=== PATIENT | female | born 1990 | race Two or more races ===

== ENCOUNTER 2016-04-17 22:29 | Emergency (ER) | payer MEDICAID ==
[~2016-04-17] VITALS: Ht 162.6 cm; Wt 52.2 kg
[~2016-04-17 22:29] MED LIST: DOCU-159 PO
[2016-04-17 23:03] VITALS: BP 119/81
[2016-04-18] MEDS ORDERED: FAMOTIDINE (20 MG) 20 MG TABLET ONE (02:17)
[2016-04-18] MEDS ORDERED: diphenhydrAMINE HCL 50 MG CAPSULE ONE (02:18)
[2016-04-18] MEDS ORDERED: HYDROCORTISONE 1% CREAM 28.35 GM TUBE TP ONE (02:19)
[2016-04-18] MEDS ORDERED: diphenhydrAMINE HCL 25 MG CAPSULE PO ONE (02:30)
[2016-04-18] MEDS ORDERED: FAMOTIDINE (20 MG) 20 MG TABLET PO ONE (02:30)
[2016-04-18] MEDS ORDERED: HYDROCORTISONE 1% CREAM 30 GM TUBE TP ONE (02:30)
== END 2016-04-18 02:29 | disposition home or self-care (01) ==
LOC: ER 22:32
DX: S80.862A Insect bite (nonvenomous), left lower leg, initial encounter (principal); S80.861A Insect bite (nonvenomous), right lower leg, initial encounter; W57.XXXA Bitten or stung by nonvenomous insect and other nonvenomous arthropods, initial encounter; Y93.89 Activity, other specified; Y92.89 Other specified places as the place of occurrence of the external cause; Y99.8 Other external cause status
CPT/HCPCS: 99284; A4606; Q0163; Z7610

== ENCOUNTER 2016-12-24 15:19 | Emergency (ER) | payer MEDICAID, OTHER ==
[~2016-12-24] VITALS: Ht 165.1 cm; Wt 48.1 kg
--- NOTE | 2016-12-24 15:22 | NUR ---
ABD PAIN ON-OFF X 2 MONTHS, WORST THIS WK DIARRHEA SATURDAY
[2016-12-24] MEDS ORDERED: PANTOPRAZOLE 40 MG TABLET.DR PO ONE ×2 (15:50→16:00)
[2016-12-24] MEDS ORDERED: ONDANSETRON HCL/PF 4 MG/2 ML VIAL ONE (15:50)
[2016-12-24 15:52] LABS: BASOPHILS % (AUTO) 0.4 % (0.0-2.0); EOSINOPHILS % (AUTO) 0.7 % (0.0-6.0); HEMATOCRIT 41 % (33-45); HEMOGLOBIN 13.7 g/dL (11.5-14.8); LYMPHOCYTES # (AUTO) 1.5 /CMM (0.8-4.8); LYMPHOCYTES % (AUTO) 27.4 % (20.0-44.0); MEAN CORPUSCULAR HEMOGLOBIN 30 PG (26.0-33.0); MEAN CORPUSCULAR HGB CONC 33 g/dl (31.0-36.0); MEAN CORPUSCULAR VOLUME 90 fL (82-100); MONOCYTES # (AUTO) 0.3 /CMM (0.1-1.30); MONOCYTES % (AUTO) 5.9 % (2.0-12.0); NEUTROPHILS # (AUTO) 3.8 /CMM (1.8-8.9); NEUTROPHILS % (AUTO) 65.6 % (43.0-81.0); PLATELET COUNT (AUTO) 307 /CMM (150-450); RDW COEFFICIENT OF VARIATION 11.8 (11.5-15.0); WHITE BLOOD COUNT (AUTO) 5.6 K/uL (4.3-11.0)
--- NOTE | 2016-12-24 15:55 | NUR ---
LAC #20 IV ACCESS. BLOOD SAMPLE COLLECTED SENT TO LAB
[2016-12-24 15:59] LABS: APPEARANCE,URINE SL CLOUDY (CLEAR); BILIRUBIN,URINE 1+ (NEGATIVE); BLOOD, URINE 1+ Ery/uL (NEGATIVE); COLOR,URINE YELLOW (YELLOW); KETONES,URINE 1+ (NEGATIVE); LEUKOCYTE ESTERASE ,URINE NEGATIVE (NEGATIVE); NITRITE, URINE NEGATIVE (NEGATIVE); PH,URINE 6.5 (5.0-8.0); PROTEIN,URINE NEGATIVE (NEGATIVE); UGLUCOSE NEGATIVE (NEGATIVE); UROBILINOGEN,URINE 0.2 EU/dL (0.2)
--- NOTE | 2016-12-24 15:59 | NUR ---
BLOSSOM RODRIGUEZ AT BEDSIDE
[2016-12-24] MEDS ORDERED: IV NS 0.9% 1,000 ML BAG IV ONE (16:00)
[2016-12-24] MEDS ORDERED: ONDANSETRON HCL/PF - ER 4 MG/2 ML VIAL IV ONE (16:00)
[2016-12-24 16:17] LABS: ALBUMIN 4.4 g/dL (3.4-5.0); BILIRUBIN,DIRECT 0.3 mg/dL (0.0-0.2); BILIRUBIN,TOTAL 2.3 mg/dL (0.2-1.0); CALCIUM, SERUM 9.3 mg/dL (8.5-10.1); CREATININE 0.7 mg/dL (0.6-1.3); POTASSIUM 3.7 mmol/L (3.5-5.1); TOTAL PROTEIN, SERUM 7.8 g/dL (6.4-8.2)
[2016-12-24 16:36] LABS: BACTERIA,URINE Many /HPF (None Seen); SQUAMOUS EPITHELIAL CELL,UR Moderate /HPF (None Seen); WBC,URINE 0-2 /HPF (0-3)
--- NOTE | 2016-12-24 17:35 | NUR ---
Note abraham in EDM - 12/24/16 at 1745 by HASMUKH BIB SELF, C/O ABD PAIN W/ N/V/D, HEADACHE AFTER EATING FROM [facility] YESTERDAY, NAD NOTED, VSS, RESP EVEN AND UNLABORED. WAITING FOR MD BRADEN.
--- NOTE | 2016-12-24 17:59 | NUR ---
IV removed. Catheter intact and site benign. Pressure and 4x4 applied to site. No bleeding noted.Patient discharged to home in stable condition. Written and verbal after care instructions given. Patient verbalizes understanding of instruction.
[2016-12-24 18:05] VITALS: BP 125/83
== END 2016-12-24 18:05 | disposition home or self-care (01) ==
LOC: ER 15:22
DX: K59.09 Other constipation (principal); E86.0 Dehydration; R79.89 Other specified abnormal findings of blood chemistry; G89.29 Other chronic pain; F10.10 Alcohol abuse, uncomplicated
CPT/HCPCS: 36415; 76705-TC; 80048-TC; 80076-TC; 81000-TC; 83690-TC; 84703-TC; 85025-TC; 87086-TC; A4606; J2405; J7030; Z7610

== ENCOUNTER 2017-03-29 20:45 | Emergency (ER) | payer OTHER ==
--- NOTE | 2017-03-29 21:31 | NUR ---
CALLED FOR TRIAGE; NOT IN LOBBY OR OUTSIDE. SECURITY CONFIRMED
--- NOTE | 2017-03-29 21:47 | NUR ---
CALLED AGAIN; NO ANSWER
--- NOTE | 2017-03-29 22:01 | NUR ---
CALLED AGAIN; NO ANSWER
--- NOTE | 2017-03-29 22:56 | NUR ---
NO ANSWER WHEN CALLED AGAIN
== END 2017-03-29 23:05 | disposition left against medical advice (07) ==
LOC: ER 20:46
DX: Z53.21 Procedure and treatment not carried out due to patient leaving prior to being seen by health care provider (principal)

== ENCOUNTER 2017-05-07 18:17 | Emergency (ER) | payer OTHER ==
[~2017-05-07] VITALS: Ht 162.6 cm; Wt 47.6 kg
[2017-05-07 18:42] VITALS: BP 131/79
[2017-05-07 19:49] LABS: APPEARANCE,URINE Clear (CLEAR); BILIRUBIN,URINE Negative (NEGATIVE); BLOOD, URINE Trace-intact Ery/uL (NEGATIVE); COLOR,URINE Light yellow (YELLOW); KETONES,URINE Negative (NEGATIVE); LEUKOCYTE ESTERASE ,URINE Trace (NEGATIVE); NITRITE, URINE Negative (NEGATIVE); PH,URINE 7.5 (5.0-8.0); PROTEIN,URINE Negative (NEGATIVE); UGLUCOSE Negative (NEGATIVE); UROBILINOGEN,URINE 0.2 EU/dL (0.2)
[2017-05-07 20:06] LABS: BACTERIA,URINE Moderate /HPF (None Seen); SQUAMOUS EPITHELIAL CELL,UR Moderate /HPF (None Seen)
== END 2017-05-07 20:46 | disposition home or self-care (01) ==
LOC: ER 18:22
DX: K59.09 Other constipation (principal); N39.0 Urinary tract infection, site not specified
CPT/HCPCS: 81000-TC; 84703-TC; 87086-TC; A4606; Z7610

== ENCOUNTER 2018-12-09 12:02 | Emergency (ER) | payer OTHER ==
[~2018-12-09] VITALS: Ht 162.6 cm; Wt 49.9 kg
--- NOTE | 2018-12-09 12:15 | NUR ---
L sided chest pain r/t lue. sob since last night. PATIENT A/OX4, NO DISTRESS NOTED. BREATHING EVEN AND UNLABORED NO SOB NOTED. CHANGED INTO GOWN, ATTACHED TO THE CLIENT OPERATIONS MANAGER.
[2018-12-09 12:49] LABS: BASOPHILS % (AUTO) 0.3 % (0.0-2.0); EOSINOPHILS % (AUTO) 1.9 % (0.0-6.0); HEMATOCRIT 41 % (33-45); HEMOGLOBIN 13.6 g/dL (11.5-14.8); LYMPHOCYTES # (AUTO) 1.6 /CMM (0.8-4.8); LYMPHOCYTES % (AUTO) 39.8 % (20.0-44.0); MEAN CORPUSCULAR HGB CONC 34 g/dl (31.0-36.0); MEAN CORPUSCULAR VOLUME 93 fL (82-100); MONOCYTES # (AUTO) 0.3 /CMM (0.1-1.30); MONOCYTES % (AUTO) 6.5 % (2.0-12.0); NEUTROPHILS # (AUTO) 2.1 /CMM (1.8-8.9); NEUTROPHILS % (AUTO) 51.5 % (43.0-81.0); PLATELET COUNT (AUTO) 278 /CMM (150-450); RED BLOOD CELL COUNT(AUTO) 4.37 MIL/uL (4.0-5.2); WHITE BLOOD COUNT (AUTO) 4.1 K/uL (4.3-11.0)
[2018-12-09 13:01] LABS: CALCIUM, SERUM 8.9 mg/dL (8.5-10.1); CARBON DIOXIDE 27 mmol/L (21-32); CHLORIDE 105 mmol/L (98-107); CREATININE 0.6 mg/dL (0.6-1.3); GLUCOSE 104 mg/dL (74-106); POTASSIUM 3.7 mmol/L (3.5-5.1); SODIUM SERUM 139 mmol/L (136-145); UREA NITROGEN, BLOOD 7 mg/dL (7-18)
--- NOTE | 2018-12-09 14:07 | NUR ---
Ambulatory with a steady gait IV removed. Catheter intact and site benign. Pressure and 4x4 applied to site. No bleeding noted.Patient discharged to home in stable condition. Written and verbal after care instructions given. Patient verbalizes understanding of instruction.
[2018-12-09 14:08] VITALS: BP 136/80
== END 2018-12-09 14:08 | disposition home or self-care (01) ==
LOC: ER 12:07
DX: R07.89 Other chest pain (principal)
CPT/HCPCS: 36415; 71045-TC; 80048-TC; 84484-TC; 85025-TC